=== PATIENT | female | born 1955 | race Caucasian/White ===

== ENCOUNTER → 2020-05-06 08:55 | Outpatient (CLI) | payer MEDICARE, MEDICAID, SELFPAY ==
[2020-05-07 20:12] LABS: COVID19 Sendout Not Detected (Not Detect)
== END ==
PROVIDERS: PCP Physician Assistant; Visit Provider Physician Assistant
DX: Z11.59 Encounter for screening for other viral diseases (principal)
CPT/HCPCS: 87635

== ENCOUNTER → 2020-05-07 10:44 | Outpatient (CLI) | payer MEDICARE, MEDICAID, SELFPAY ==
[2020-05-07 11:41] LABS: RBC Urine None Seen (0-5/HPF); WBC Urine None Seen (0-5/HPF)
[2020-05-07 12:18] LABS: Appearance Urine UA CLEAR; Bilirubin Urine UA NEGATIVE (NEGATIVE); Color Urine UA YELLOW; Glucose Urine UA NEGATIVE (Negative); Ketones Urine UA NEGATIVE (NEGATIVE); Leukocyte Esterase Urine UA NEGATIVE (NEGATIVE); Nitrite Urine UA NEGATIVE (Negative); Occult Blood Urine UA NEGATIVE (Negative); Protein Urine UA NEGATIVE (Negative); Specific Gravity Urine UA 1.025 (1.000-1.035); Urobilinogen Urine UA 0.2 E.U./dL (0.2)
[2020-05-07 12:21] LABS: Add Manual Diff / Slide Review NO; Basophils Absolute Auto 0 /uL (0-100); Basophils Percent Auto 1.1 % (0-2); Eosinophils Absolute Auto 0 /uL (0-450); Eosinophils Percent Auto 0.9 % (2-4); Hematocrit 39.1 % (36-46); Hemoglobin 13.2 g/dL (12.0-16.0); Lymphocytes Absolute Auto 1600 /uL (1100-4500); Mean Corpuscular HGB Conc 33.7 % (30-36); Mean Corpuscular Hemoglobin 29.5 PG (26-34); Mean Corpuscular Volume 87.6 fL (80-100); Monocytes Absolute Auto 500 /uL (0-900); Monocytes Percent Auto 11.3 % (3-14); Neutrophils Absolute Auto 2300 /uL (1500-7000); Neutrophils Percent Auto 51.7 % (50-75); Platelet Count 221 X10^3/uL (150-400); Red Blood Cell Count 4.47 X10^6/uL (4.0-5.2); Red Cell Distribution Width 14.3 % (11.6-14.8); White Blood Cell Count 4.4 X10^3/uL (4.5-11.0)
[2020-05-07 12:41] LABS: BUN Creatinine Ratio 22.9 (6-22); Blood Urea Nitrogen 16 mg/dL (7-17); Calcium 9.6 mg/dL (8.4-10.2); Carbon Dioxide 28 mmol/L (22-32); Chloride 106 mmol/L (98-107); Estimated Glomerular Filt Rate > 60.0 mL/min (>60); Glucose 95 mg/dL (80-110); HEMOLYSIS 19 (0-50); Potassium 4.3 mmol/L (3.4-5.1); Sodium 138 mmol/L (137-145)
[2020-05-07 12:46] LABS: Bacteria Urine Occasional (0-1); Culture Indicated Urine Cult Not Indicated; Squamous Epithelial Cell Urine 1-5 /HPF (0-5/HPF)
== END ==
PROVIDERS: PCP Physician Assistant; Referring Provider Orthopaedic Surgery Orthopaedic Surgery of the Spine; Visit Provider Orthopaedic Surgery Orthopaedic Surgery of the Spine
DX: Z01.818 Encounter for other preprocedural examination (principal); Z01.812 Encounter for preprocedural laboratory examination; N39.0 Urinary tract infection, site not specified
CPT/HCPCS: 36415; 80048; 81001; 85025; 93005

== ENCOUNTER 2020-05-10 15:38 | Observation (INO) | payer MEDICARE, MEDICAID, SELFPAY ==
[2020-05-08 13:38] VITALS: BMI 23.6
[2020-05-09] VITALS (15 sets, daily range): BP systolic 94–167; BP diastolic 42–86; PULSE 64–101; RESP 12–20; TEMP 35.8–36.8; O2SAT 89–100; BMI 23.3
--- NOTE | 2020-05-09 | DI.RAD.S_ITS ---
PROCEDURE: XR LUMBAR SPINE 2-3V INDICATIONS: L4-5, L5-S1 TLIF TECHNIQUE: 2 intraoperative fluoroscopic views of the lumbar spine were acquired. COMPARISON: None. FINDINGS: Intraoperative fluoroscopic images of lower lumbar spine shows transpedicular fusion of L4 through S1 vertebral bodies with intervertebral disc spacer placement at L4-5 and L5-S1 levels. IMPRESSION: Fluoro guidance was provided intraoperatively for fusion of lower lumbar spine. Dictated by: Andreas Castañeda M.D. on 05/09/2020 at 12:37 Approved by: Andreas Castañeda M.D. on 05/09/2020 at 12:38
[2020-05-09] MEDS: LACTATED RINGERS 1,000 ML 42 ML IV ×2 (07:15→10:30)
[2020-05-09] MEDS: CEFAZOLIN 2 GM/100 ML FROZ.PIGGY IV (07:54)
--- NOTE | 2020-05-09 07:54 | PM.PREOP ---
Pre-operative Note COVID-19 COVID-19 status: Negative Result date/Date tested (Pos, Neg/Pending): 05/07/20 Interval Note History & Physical reviewed/Exam performed by Physician: Yes Changes to H&P: No
--- NOTE | 2020-05-09 08:20 | SUR.OPER ---
Prone on spine table, head in foam head support, padded chest and pelvic supports, gel pad at knees, lower legs supported by pillows; nipples, genitalia and toes free of pressure, arms secured on foam padded arm boards at <90 degrees abduction. Tape over blanket at thigh secured to table.
[2020-05-09] MEDS: BUPIVACAINE LIPOSOME 266 MG/20 ML VIAL INJ (08:28)
[2020-05-09] MEDS: BUPIVACAINE 0.25% W/ EPI (PF) 10 ML VIAL 20 ML INJ (08:30)
--- NOTE | 2020-05-09 12:24 | P.OP_ITS ---
Operative Date/Time/Diagnoses Date of procedure: 05/09/20 Time of procedure: 08:07 Pre-op diagnosis: 1. L4-5, L5-S1 spondylolisthesis 2. L4-5, L5-S1 spinal stenosis Post-op diagnosis: same Procedure & Clinicians Procedure: 1. L4-5, L5-S1 Postero-lateral and posterior interbody fusion 2. L4-5, L5-S1 interbody cage placement. 3. L4-5, L5-S1 decompressive laminectomy with bilateral facetecomies 4. L4-5, L5-S1 Posterior segmental instrumentation 5. Henderson of bone marrow from iliac crest 6. Utilization of microsurgical technique and operating microscope Same procedure as scheduled: Yes Indications: Patient has been having chronic back pain and worsening lumbar radiculopathy. Patient failed multiple conservative management with worsening pain weakness and numbness in her lower extremity. Patient has been having difficulty performing activity of daily living. After discussing risks benefits of treatment options, patient elected proceed with surgery. Surgeon: Ion Awad Affiliate Marketing Manager: Lauren Mittal Click Yes if Unassisted: No Anesthesia Type: General Operative Notes Closure Type: primary Specimen(s): none sent Prosthetic devices, grafts, tissues, transplants, or devices: Globus revolve screws, Rise cages Applied: catheter Estimated Blood Loss (mL): 100 Blood products transfused: none Procedure in detail: Patient was seen in the preoperative area. Risks and benefits of the surgery was discussed with the patient. Informed consent was obtained from the patient and placed in the chart. Surgical site was marked. Patient was taken to the operative room. General anesthesia was administered. Prophylactic antibiotic was given to the patient less than 30 min before the incision was made. Patient was placed into a prone position on the Holden table. Patient's back was then prepped and draped in the sterile fashion. Time- out was performed at this time. Using AP and lateral C-arm imaging the interval between L4-S1 was identified and marked on patient's back. A 2 inch incision 2 in from midline was made on the right side first. The fascia was incised in line with skin incision. Globus MARS retractors was placed inside the incision and docked onto the L4 and L5 lamina. Using microsurgical technique and operating microscope, a L4 and L5 laminectomy and L4-5 L5-S1 facetectomy was performed using a Kerrison rongeur. During the process of decompression more than 75% of bilateral L4-5 L5-S1 facets were removed in order to decompress the spinal canal and the lateral recess. Bilateral L4-L5 and S1 nerve roots were decompressed during the process of decompression. The L4-5 L5-S1 level was grossly unstable after the decompression was completed and requiring the fusion procedure. The disc space at L4-5, L5-S1 was identified. And a total diskectomy was performed at L4-5, L5- S1 level. The endplates were decorticated using a rasp and shaver. The total diskectomy and decortication was performed at L4-5, L5-S1 level in order to to accomplish a L4-5, L5-S1 fusion. The local bone from the laminectomy and facetectomy was saved for local bone grafting. After the total diskectomy and decortication was completed, Trifecta bone graft material was combined with local bone that was harvested earlier. At this time, a separate skin is incision was made over the iliac crest. A Jamshidi needle was inserted into the iliac crest through a separate skin incision. 5 cc of bone marrow aspiration was obtained through the separate skin incision using a Jamshidi needle from the iliac crest. The bone marrow aspiration was combined with local bone and the Trifecta bone grafting material. The bone grafting material was placed into the L4-5, L5-S1 interbody space along with two cages, one expandable cage at each level. The cages were expanded to their maximum height using the torque limiting screwdriver. At this time a mirror image incision was made on the left side. The fascia was incised in line with the skin incision. Globus MARS retractor was inserted and docked onto the L4-5, L5-S1 posterolateral gutter. Using the power drill, posterior-lateral decortication was performed at L4-5, L5-S1 level until bleeding cortical bone was identified. The remaining bone grafting material was placed into the L4-5 L5-S1 posterior lateral gutter he order to accomplish posterolateral fusion at the L4-5 L5-S1 levels. Using the double C-arm technique, pedicle screws were placed into the L4, L5, S1 pedicles bilaterally. This was done by placing the Jamshidi needle into the pedicles, then placing the guidewires over the Jamshidi needle, and finally placing the cannulated screws over the guidewires bilaterally. After the pedicle screws were placed, 2 titanium rods was locked into the heads of the pedicle screws using locking caps and torque limiting screwdriver. Total 6 pedicles screws were placed. After all the hardware was placed, and confirmed with AP and lateral C-arm imaging, the wound was then irrigated with sterile normal saline and packed with Ray-Adam gauze for 3 min to accomplish hemostasis. After the gauze was removed the deep fascia was closed with #1 Vicryl suture. The subcutaneous layer was closed with 2-0 Vicryl. The skin was closed with skin jany. Patient tolerated the procedure well. There were no complications. Complications: none Post-operative Condition: stable Disposition: PACU Plan for aftercare: Admit to inpatient hospital
[2020-05-09] MEDS: HYDROMORPHONE 2 MG INJ IV (12:45)
[2020-05-09] MEDS: hydrOXYzine 50 MG/ML INJ 25 MG IM (13:07)
[2020-05-09] MEDS: OXYCODONE/ACETAMINOPHEN 5/325 TABLET 1 TAB PO (13:12)
--- NOTE | 2020-05-09 13:24 | SUR.PHASEI ---
1232 - Pt received to PACU after general anesthesia. Oral airway in place. No further airway support required. Report received from JUAN PABLO Carver and Dr Sierra. 1237 - Oral airway removed without difficulty. Pt restless, squirming, not following commands. Will medicate for pain - see AUG. 1255 - Dr Sierra at bedside - medicated by Dr Sierra - see anesthesia record. 1325 - Pt less restless - does try to sit up at times until reminded not to. Following commands. Pt sleeepy. Will continue to monitor until more oriented to situation.
[2020-05-09] MEDS: SODIUM CHLORIDE 0.9% 1,000 ML 100 ML IV (16:08)
[2020-05-09] MEDS: CEFAZOLIN 1 GM/50 ML FROZ.PIGGY IV ×2 (16:10→23:59)
[2020-05-09] MEDS: OXYCODONE IR 10 MG TABLET PO (18:00)
--- NOTE | 2020-05-09 18:53 | PC.NURSE ---
Addendum entered by Farideh King R.N. 05/09/20 21:34: Patient with nausea and emesis, zofran given and effective. Original Note: Patient resting in bed this shift. Sat up to eat for dinner. Pain controlled well with oxycodone. Pad under patient changed d/t lower back dressing saturated. Reinforced back dressing w/2 4x4s and paper tape. Patient tolerated well. Patient has c/o eyes burning when opened. As the shift has gone on the burning of her eyes has improved some. At the beginning of the shift patient was on 2L o2 sats 99%, placed on RA sats 96%. Patient has been A&O, calm and cooperative.
[2020-05-09] MEDS: DOCUSATE 100 MG CAPSULE PO (20:38)
[2020-05-09] MEDS: SENNOSIDES 8.6 MG TABLET 17.2 MG PO (20:38)
[2020-05-09] MEDS: ONDANSETRON 4 MG/2 ML INJ IV (20:38)
[2020-05-10] VITALS (7 sets, daily range): BP systolic 102–134; BP diastolic 55–70; PULSE 90–101; RESP 16–19; TEMP 36.2–37.6; O2SAT 95–97
[2020-05-10] MEDS: ACETAMINOPHEN 325 MG TABLET 650 MG PO ×3 (02:37→21:50)
[2020-05-10] MEDS: SODIUM CHLORIDE 0.9% 1,000 ML 100 ML IV (03:45)
[2020-05-10 05:31] LABS: Hematocrit 33.4 % (36-46); Hemoglobin 11.2 g/dL (12.0-16.0)
[2020-05-10] MEDS: DOCUSATE 100 MG CAPSULE PO ×2 (08:43→21:49)
[2020-05-10] MEDS: INFLUENZA HD VACCINE 0.7 ML SYRINGE IM (08:43)
--- NOTE | 2020-05-10 10:03 | PC.NURSE ---
Dressing to lower back has been changed to a coversite with gauze pads in place to provide additional pressure to weeping incisions. Previous dressing saturated 90%. Pt has been up to bedside chair for breakfast. She moved very well with one person assist and FWW. She did not tolerate sitting in the chair long. She requested to be put back to bed. Pt rated her pain at 4/10. She did not want to have 10mg of oxycodone as it had made her nauseous last night. She requested just tylenol and ibuprophen. We had a discussion about talking with ESTEFANY Arias and asking if we could change her narcotic pain med to one that is a little less strong. ESTEFANY Arias has been called and message left.
--- NOTE | 2020-05-10 10:10 | PM.PN.1 ---
Subjective Subjective Date Patient Seen: 05/10/20 Time Patient Seen: 10:10 Interval history: Patient is POD#1 L4-5, L5-S1 TLIF with Dr. wAad. Some issues with pain control, Oxycodone was causing significant nausea/vomiting and so she was avoiding this and taking only Tylenol. Started on [place] this afternoon which is providing improved relief. Patient denies muscle spasms. Voiding appropriately and tolerating a diet at this point. Exam Vital Signs (past 8 hours): - 05/10/20 05:36 05/10/20 09:34 Temperature 98.3 F 97.8 F Pulse Rate 101 H 90 Respiratory Rate 16 16 Blood Pressure 117/68 102/55 L Pulse Oximetry 96 97 Oxygen Delivery Method Nasal Cannula Oxygen Flow Rate 0 Narrative Exam Narrative: 65 year old female resting in bed. Alert and oriented in no acute distress. Dressing in place over lumbar spine is CDI. 5/5 BLE. Calves are soft, nontender. Objective Labs Result Diagrams: 05/10/20 05:00 Labs: Laboratory Results - last 24 hr 05/10/20 05:00 Hgb 11.2 L Hct 33.4 L Assessment & Plan Assessment & Plan narrative: Patient doing well postop L4-5, L5-S1 TLIF. Continue to work with PT. Discontinued Oxycodone due to vomiting and started [place] with improved relief. Likely discharge to home tomorrow. Quality VTE Deep Vein Thrombosis/Pulmonary Embolism Present on Admission: No
--- NOTE | 2020-05-10 11:20 | PT.IIE ---
Current Diagnoses Spondylolisthesis, lumbosacral region (05/09/20) Spinal stenosis, lumbar region without neurogenic claudication (05/09/20) Surgery Performed Operation Date: 05/09/20 07:45 Actual Procedures p L4-5, L5-S1 TLIF - Ion Awad MD Surgical History (Last Updated 05/08/20 @ 14:07 by Khadijah Castro RN) History of arthroplasty of right hip (Acute) History of colonoscopy (Acute) History of partial hysterectomy (Acute) Hx of appendectomy (Acute) Hx of LASIK (Acute) Hx of tubal ligation (Acute) Medical History (Last Updated 05/08/20 @ 14:07 by Khadijah Castro RN) Arthritis (Acute) Back pain (Acute) Glaucoma (Acute ~2013) Sciatica (Acute) Physical Therapy Inpatient Evaluation/Re-Eval M1 PT/OT-IP Prior Functional Status Start: 05/10/20 08:40 Freq: NEEDED Status: Active Protocol: Document 05/10/20 11:15 AW (Rec: 05/10/20 12:16 AW [id number]) Medical Review Prior Functional Status Medical History Reviewed Yes Communication WNL Mobility and Gait Pt states she is independent with all mobilities except for use of a cane for uneven surfaces [place] as at the beach. Activities of Daily Living and IADL's Pt is right-handed and notes some wasting of the thenar eminence which has made some fine motor tasks more difficult. In spite of this, she has remained independent with all ADL's. Her sister assist with cooking, cleaning, and some shopping. Social History Household Members family Living Arrangements House Number of Floors (Floors) Two Floors Number of Stairs To Enter/Railing? 2 AMIRA with left rail ascending . Once inside, pt must climb 6 + 7 steps with left railing along the entire stair case. Her bedroom is located on the upper level. Home Environment Standard Height Toilet,Tub/ Shower Home Equipment Straight Cane,Grab Bars In Shower Additional Social History Comment Pt lives with her sister and [id number]. Between the two of them, they are taking days off to assist the pt for ~6-7 days after surgery. M2 PT-IP Current Condition Start: 05/10/20 08:40 Freq: NEEDED Status: Active Protocol: Document 05/10/20 11:15 AW (Rec: 05/10/20 12:16 AW [id number]) Physical Therapy Current Condition Current Condition Evaluation Date 05/10/20 Treatment Diagnosis s/p L4-S1 TLIF Onset Date 05/09/20 Precautions Lumbar Precautions Log Roll,No Twisting,Limit Bending,Lifting Restriction of 10 lbs,Gait Belt above Incisional Area M3 PT-IP Subjective Start: 05/10/20 08:40 Freq: NEEDED Status: Active Protocol: Document 05/10/20 11:15 AW (Rec: 05/10/20 12:16 AW [id number]) Subjective Physical Therapy Visit Type Type Initial Evaluation Visit Start Time 10:51 Visit Stop Time 11:14 Total Visit Minutes 23 Physical Therapy Visit Comments Patient Comments I'll do whatever you ask me to do. Patient Goals Pt plans to discharge home with family assist. Therapy Pain Assessment Pain When Pain Assessed During Mobility Pain Present Pain Present Pain Reported Location back Intensity 4 Scale Used 3/10 at rest; 4/10 during ambulation Pain Management Techniques Timing of Activity with Medications M4 PT-IP Mobility and Gait Start: 05/10/20 08:40 Freq: NEEDED Status: Active Protocol: Document 05/10/20 11:15 AW (Rec: 05/10/20 12:16 AW [id number]) PT-Bed Mobility Assessment Rolling Type of Rolling Log Rolling,Roll to Left Level of Assist Contact Guard Assistance Supine to Sit Supine to Sit Contact Guard Assistance Sit to Supine Sit to Supine Contact Guard Assistance Scooting Scooting to Edge of Bed Standby Assistance PT-Transfer Assessment Sit to and From Stand Sit to and from Stand Contact Guard Assistance,2 Person Assistance Equipment Transfer Assistive Device Gait Belt,Front Wheeled Walker Orthotic/Prosthetic Devices or Brace: No Transfers Transfer Destination Bed Transfer Technique pt ambulated with FWW Transfer Ability Level of Assist Contact Guard Assistance Comments Mobility Comments Pt was lying on her left side as PT entered the room. PT educated the pt on back precautions and pt demonstrated log roll and sidelying to sit transfer with verbal cues and CGA. At EOB, BP was 107/59 HR 77. She sat with and without UE support during strength assessment and then stood from the bed CGA. With FWW, she ambulated in the halls with slow speed but good step length ~100 feet before returning to the room and requesting to rest in the bed. She completed sit to supine CGA with good attention to precautions. She was situated on the bed with call light and all needs within reach. Gait Assessment Gait Gait Assistance Required: Contact Guard Assist Distance (Feet) 100 Able to Maintain Weight Bearing Status Yes During Gait Assistive Devices Assistive Device Gait Belt,Front Wheeled Walker Orthotic/Prosthetic Devices or Brace: No Gait Deviations General Gait Pattern Antalgic,Decreased Feet Clearance,Flexed Trunk Factors Limiting Gait Function Factors Limiting Gait Function Decreased Activity Tolerance, Decreased Strength,Limited Range of Motion,Pain,Poor Balance Comments Gait Comments Pt responded well to cues for optimal positioning relative to the FWW. Weightbearing on the walker was minimal. Pt may be safe with SPC. Stair Climbing Assessment Comments Stair Climbing Comments Not assessed. Pt will need to clear stairs prior to discharge. PT-Balance Assessment Sitting Balance and Reactions Static Sitting Balance Ability Good Dynamic Sitting Balance Ability Good Standing Balance and Reactions Static Standing Balance Ability Good Dynamic Standing Balance Ability Good Device Used FWW M5 PT-IP Objective Assessments Start: 05/10/20 08:40 Freq: NEEDED Status: Active Protocol: Document 05/10/20 11:15 AW (Rec: 05/10/20 12:16 AW [id number]) Orientation Orientation/Cognition Level of Alertness Alert Orientation Name,Day of Week,Place, Situation Language Function Ability No Deficits Noted Safety Awareness Understands Safety Issues Memory Description No Deficits Noted Gross Range of Motion Lower Extremity ROM Assessment Within Functional Limits Strength Lower Extremity Strength Assessment Bilaterally Impaired Hip 4/5 Knee 4+/5 Ankle 4/5 Coordination Assessment Gross Coordination Gross Coordination WNL Sensation Assessment Sensation Gross Sensation WNL M6 PT-IP Treatment Start: 05/10/20 08:40 Freq: NEEDED Status: Active Protocol: Document 05/10/20 11:15 AW (Rec: 05/10/20 12:16 AW [id number]) Physical Therapy Treatment Education Education Provided Precautions,Weight Bearing Status,Post-Op Packet,Safety Other Treatments Other Treatment Performed Provided education on role of PT, plan of care, post op precautions, and safe use of FWW. M7 PT-IP Assessment and Plan Start: 05/10/20 08:40 Freq: NEEDED Status: Active Protocol: Document 05/10/20 11:15 AW (Rec: 05/10/20 12:16 AW [id number]) PT Summary Assessment and Plan Potential Rehabilitation Potential Good Status of Condition at Evaluation Stable Summary Impairments Pain,ROM,Strength,Balance,Bed Mobility,Transfers,Gait, Activity Tolerance Assessment Summary Teresita is a 65 yo woman seen for PT evaluation on POD1 following L4-S1 TLIF. She is independent in all regards at baseline though admits to some difficulty with ADL's due to decreased muscle mass in her right thenar eminence. On evaluation, pt required CGA for bed mobility, transfers, and gait with FWW. Pt is not yet safe for discharge but PT anticipates home with assist will be a safe plan once pt is able to navigate stairs. Goals Bed Mobility Goal Independent Transfer Goal Independent,Cane Gait Goal Independent,Standby Assistance ,Cane Gait Distance 200 Other Goals - up/down 13 steps with left rail ascending SBA - gait and transfer goals may be accomplished with FWW if pt unsafe with SPC Days to Meet Goals 5 Frequency of Treatment Frequency Of Treatment Twice a Day Treatment Plan Physical Therapy Treatment Plan Bed Mobility Training,Transfer Training,Gait Training, Therapeutic Exercise,Balance Retraining,Post Op Education, Discharge Planning,Hot or Cold Pack,Neuromuscular Re-ed, Coordination Retraining,Manual Therapy Other Recommendations and Next Treatment assess gait and transfers with Focus SPC if pt tolerates; stairs Recommendations To Nursing Amount of Assist Needed 1 Person Assist Discharge Recommendations PT Discharge Recommendations Home with Assistance Equipment Needed for Home Before FWW if unsafe with FWW Discharge Transportation Needs at Discharge Private Vehicle
--- NOTE | 2020-05-10 11:47 | CM.IDA ---
Initial DCP Assessment Note Pt is a 65 yo female, resident of [place], now POD#1 from spinal surgery w/ Dr Awad PCP: Indira Romero Payer: MAXINE/JENNA Met w/patient this morning to introduce role. Patient in increasing pain and so kept visit brief and alerted JUAN PABLO Reed. Patient lives w/her sister and brother in law, patient's niece, Chloe, works as a MANAGER OF COMMUNITY RELATIONS at . Patient expects no needs from this MEDIA SERVICES COORDINATOR upon DC, family available to assist in her recovery. Will continue to follow closely and address any DC needs or concerns if they arise. YANI Tee
[2020-05-10] MEDS: HYDROCODONE/ACET 5/325 TABLET 1 TAB PO (13:13)
--- NOTE | 2020-05-10 14:56 | PT.IPTN ---
Current Diagnoses Spondylolisthesis, lumbosacral region (05/09/20) Spinal stenosis, lumbar region without neurogenic claudication (05/09/20) Surgery Performed Operation Date: 05/09/20 07:45 Actual Procedures p L4-5, L5-S1 TLIF - Ion Awad MD Physical Therapy Treatment Note M2 PT-IP Current Condition Start: 05/10/20 08:40 Freq: NEEDED Status: Active Protocol: Document 05/10/20 11:15 AW (Rec: 05/10/20 12:16 AW [id number]) Physical Therapy Current Condition Current Condition Evaluation Date 05/10/20 Treatment Diagnosis s/p L4-S1 TLIF Onset Date 05/09/20 Precautions Lumbar Precautions Log Roll,No Twisting,Limit Bending,Lifting Restriction of 10 lbs,Gait Belt above Incisional Area M3 PT-IP Subjective Start: 05/10/20 08:40 Freq: NEEDED Status: Active Protocol: Document 05/10/20 14:42 AW (Rec: 05/10/20 14:55 AW [id number]) Subjective Physical Therapy Visit Type Type Treatment Note Visit Start Time 13:57 Visit Stop Time 14:22 Total Visit Minutes 25 Physical Therapy Visit Comments Patient Comments Pt is willing to participate with PT Therapy Pain Assessment Pain When Pain Assessed During Mobility Pain Present Pain Present Pain Reported Location back Intensity 4 Scale Used 3/10 at rest; 4/10 during ambulation Pain Management Techniques Timing of Activity with Medications M4 PT-IP Mobility and Gait Start: 05/10/20 08:40 Freq: NEEDED Status: Active Protocol: Document 05/10/20 14:42 AW (Rec: 05/10/20 14:55 AW [id number]) PT-Bed Mobility Assessment Rolling Type of Rolling Log Rolling,Roll to Right Supine to Sit Supine to Sit Standby Assistance Sit to Supine Sit to Supine Standby Assistance Scooting Scooting to Edge of Bed Standby Assistance PT-Transfer Assessment Sit to and From Stand Sit to and from Stand Standby Assistance Equipment Transfer Assistive Device Gait Belt,Front Wheeled Walker Orthotic/Prosthetic Devices or Brace: No Transfers Transfer Destination Bed Transfer Technique pt ambulated with FWW Transfer Ability Level of Assist Standby Assistance Comments Mobility Comments Pt was lying on her right side as PT and SPT entered the room. Pt was able to recall 3/ 3 back precautions. She completed sidelying to sit transition SBA and sat EOB. BP was 100/38 HR 112 but pt was asymptomatic. Pt stood from EOB with no lightheadedness CGA and proceeded to ambulate with w/c follow and SPC. Pt ambulated ~ 40 feet with SPC requiring CGA due to increased unsteadiness. Pt acknowledged unsteady gait and agreed to switch to FWW. With FWW, pt ambulated another 100 feet before requesting to sit on the w/c. She was wheeled to the stairs where she stood with FWW, walked to the stairs , and completed stair training CGA. After stair training, pt ambulated with FWW 200 SBA but needed CGA once for LOB due to poor obstacle clearance . Pt returned to the room and sat on the right side of the bed. She transferred back to sidelying SBA. BP after activity was 99/54 HR 115. She was positioned on the bed with call light and all needs within reach. Gait Assessment Gait Gait Assistance Required: Standby Assistance,Contact Guard Assist Distance (Feet) 200 Able to Maintain Weight Bearing Status Yes During Gait Assistive Devices Assistive Device Gait Belt,Straight Cane,Front Wheeled Walker Orthotic/Prosthetic Devices or Brace: No Gait Deviations General Gait Pattern Antalgic,Decreased Feet Clearance,Flexed Trunk Factors Limiting Gait Function Factors Limiting Gait Function Decreased Activity Tolerance, Decreased Strength,Limited Range of Motion,Pain,Poor Balance Comments Gait Comments Pt agreed gait with SPC was unsafe. She improved her steadiness with FWW. Stair Climbing Assessment Evaluation Level of Assist On Stairs Contact Guard Assistance Devices Stair Climbing Assistive Devices Left Railing Technique/Endurance Stair Climbing Direction Ascend and Descend Stair Climbing Technique Step to Step Number of Steps Climbed 3 Stair Climbing Set # Repetitions (reps) 4 Comments Stair Climbing Comments Pt completed stair training using left railing CGA. She began with step over step patterning first set and reverted to step-to pattern with increased fatigue. PT-Balance Assessment Sitting Balance and Reactions Static Sitting Balance Ability Good Dynamic Sitting Balance Ability Good Standing Balance and Reactions Static Standing Balance Ability Good Dynamic Standing Balance Ability Good Device Used FWW; downgrade to fair with SPC M5 PT-IP Objective Assessments Start: 05/10/20 08:40 Freq: NEEDED Status: Active Protocol: Document 05/10/20 11:15 AW (Rec: 05/10/20 12:16 AW [id number]) Orientation Orientation/Cognition Level of Alertness Alert Orientation Name,Day of Week,Place, Situation Language Function Ability No Deficits Noted Safety Awareness Understands Safety Issues Memory Description No Deficits Noted Gross Range of Motion Lower Extremity ROM Assessment Within Functional Limits Strength Lower Extremity Strength Assessment Bilaterally Impaired Hip 4/5 Knee 4+/5 Ankle 4/5 Coordination Assessment Gross Coordination Gross Coordination WNL Sensation Assessment Sensation Gross Sensation WNL M6 PT-IP Treatment Start: 05/10/20 08:40 Freq: NEEDED Status: Active Protocol: Document 05/10/20 14:42 AW (Rec: 05/10/20 14:55 AW [id number]) Physical Therapy Treatment Education Education Provided Precautions,Safety Other Treatments Other Treatment Performed Pt independently recalled 3/3 precautions and moved with good attention to same. M7 PT-IP Assessment and Plan Start: 05/10/20 08:40 Freq: NEEDED Status: Active Protocol: Document 05/10/20 14:42 AW (Rec: 05/10/20 14:55 AW [id number]) PT Summary Assessment and Plan Summary Impairments Pain,ROM,Strength,Balance,Bed Mobility,Transfers,Gait, Activity Tolerance Progress Towards Goals Progressing Toward Goals Assessment Summary Teresita required decreased level of assist this PM. She was asymptomatically hypotensive throughout. Unknown if this is consistent with her baseline BP. PT communicated findings to RN. She completed stair training with CGA. This PT and pt agree that she is steadier and safer with FWW. Pt states she will ask her sister to procure a walker. Will follow up in the AM. Goals Bed Mobility Goal Independent Transfer Goal Independent,Cane Gait Goal Independent,Standby Assistance ,Cane Gait Distance 200 Other Goals - up/down 13 steps with left rail ascending SBA - gait and transfer goals may be accomplished with FWW if pt unsafe with SPC Days to Meet Goals 5 Frequency of Treatment Frequency Of Treatment Twice a Day Treatment Plan Physical Therapy Treatment Plan Bed Mobility Training,Transfer Training,Gait Training, Therapeutic Exercise,Balance Retraining,Post Op Education, Discharge Planning,Hot or Cold Pack,Neuromuscular Re-ed, Coordination Retraining,Manual Therapy Recommendations To Nursing Amount of Assist Needed 1 Person Assist Discharge Recommendations PT Discharge Recommendations Home with Assistance Equipment Needed for Home Before FWW if unsafe with SPC Discharge Transportation Needs at Discharge Private Vehicle
--- NOTE | 2020-05-10 14:59 | OT.IP.EVAL ---
Current Diagnoses Spondylolisthesis, lumbosacral region (05/09/20) Spinal stenosis, lumbar region without neurogenic claudication (05/09/20) Surgery Performed Operation Date: 05/09/20 07:45 Actual Procedures p L4-5, L5-S1 TLIF - Ion Awad MD Past Medical History (Last Updated 05/08/20 @ 14:07 by Khadijah Castro RN) Arthritis (Acute) Back pain (Acute) Glaucoma (Acute ~2014) Sciatica (Acute) Surgical History (Last Updated 05/08/20 @ 14:07 by Khadijah Castro RN) History of arthroplasty of right hip (Acute) History of colonoscopy (Acute) History of partial hysterectomy (Acute) Hx of appendectomy (Acute) Hx of LASIK (Acute) Hx of tubal ligation (Acute) Occupational Therapy Inpatient Evaluation/Re-Eval M1 PT/OT-IP Prior Functional Status Start: 05/10/20 17:44 Freq: NEEDED Status: Active Protocol: Document 05/10/20 17:51 [facility] (Rec: 05/10/20 18:20 [facility] [id number]) Medical Review Prior Functional Status Medical History Reviewed Yes Communication WNL Mobility and Gait Pt states she is independent with all mobilities except for use of a cane for uneven surfaces [place] as at the beach. Activities of Daily Living and IADL's Pt is right-handed and notes some wasting of the thenar eminence which has made some fine motor tasks more difficult. In spite of this, she has remained independent with all ADL's. Her sister assist with cooking, cleaning, and some shopping. Social History Household Members family Living Arrangements House Number of Floors (Floors) Two Floors Number of Stairs To Enter/Railing? 2 AMIRA with left rail ascending . Once inside, pt must climb 6 + 7 steps with left railing along the entire stair case. Her bedroom is located on the upper level. Home Environment Standard Height Toilet,Tub/ Shower Home Equipment Straight Cane,Grab Bars In Shower Additional Social History Comment Pt lives with her sister and [id number]. Between the two of them, they are taking days off to assist the pt for ~6-7 days after surgery. M2 OT-IP Current Condition Start: 05/10/20 17:44 Freq: Status: Active Protocol: Document 05/10/20 17:51 [facility] (Rec: 05/10/20 18:20 [facility] [id number]) Occupational Therapy Current Condition Current Condition Evaluation Date 05/10/20 Treatment Diagnosis s/p L 4-5 , L5-S1 TLIF Diagnosis Onset Date 05/09/20 Post Operative Precautions Lumbar Precautions Log Roll,No Twisting,Limit Bending,Lifting Restriction of 10 lbs,Gait Belt above Incisional Area M3 OT- IP Subjective and Pain Start: 05/10/20 17:44 Freq: Status: Active Protocol: Document 05/10/20 17:51 [facility] (Rec: 05/10/20 18:20 [facility] [id number]) OT- Subjective Occupational Therapy Visit Type Type Initial Evaluation Visit Start Time 14:31 Visit Stop Time 14:59 Total Visit Minutes 28 Occupational Therapy Visit Comments Patient Comments Pt agreed to get up for OT eval. Patient/Caregiver Goals To go home. OT Pain Assessment Pain When Pain Assessed During Mobility Pain Present Pain Present Pain Reported M4 OT- IP ADL's Start: 05/10/20 17:44 Freq: Status: Active Protocol: Document 05/10/20 17:51 [facility] (Rec: 05/10/20 18:20 [facility] [id number]) OT [id number] Comments OT Self-Feeding Comments NOt at meal time. OT ADL-Grooming Comments OT Grooming Comments Able to wash her hands at the sink. OT ADL-Oral Care Comments Oral Care Comments Educated best to spit into a cup or hinge at her hips to spit in to sink to best follow her back precautions. OT ADL-Dressing General Eval Lower Body Dressing Ability Maximum Assistance Areas Needing Assistance Socks Comments OT Dressing Comments Initiated education of LB dressing and issed to her. To further practice after showering tomorrow for OT session. OT ADL-Toileting General Evaluation Toileting Ability Standby Assistance Comments OT Toileting Comments Pt able to follow back precautions to be able to wipe appropriately. OT ADL-Bathing Comments OT Bathing Comments To do tomorrow. Pt may benefit from either shower chair or tub bench to further assess which one will be more appropriate. M5 OT- IP IADL's Start: 05/10/20 17:44 Freq: Status: Active Protocol: Document 05/10/20 17:51 [facility] (Rec: 05/10/20 18:20 [facility] [id number]) OT-Instrumental Activities of Daily Living Home Safety Awareness Awareness of Need for Assistance at Home Good Awareness Ability to Problem Solve Emergency Able to Problem Solve Situations Medication Management Medication Management No Deficits Identified Money Management Money Management No Deficits Identified Meal Preparation Meal Preparation Caregiver Provides Assist Curtain Stretcher Curtain Stretcher Caregiver Provides Assist M6 OT- IP Functional Cognition Start: 05/10/20 17:44 Freq: Status: Active Protocol: Document 05/10/20 17:51 [facility] (Rec: 05/10/20 18:20 [facility] [id number]) Cognitive Factors Limiting Selfcare Function Cognitive Ability Level of Alertness Alert Patient Orientation Name,Age,Birthday,Month,Date, Year,Day of Week,Place, Situation Attention Span Ability Capable of Focused Attention, Capable of Sustained Attention Ability to Follow Commands Able to Follow Multi-Step Commands Memory Description No Deficits Noted Safety Awareness No Deficits Noted Problem Solving Ability No deficits Noted Cognitive Comments Cognitive Assessment Comments Today pt having no deficits for cognition and intact and good awareness and safety for back precautions. OT- Vision and Hearing OT- Hearing Assessment OT- Hearing Assessment WFL M7 OT- IP Mobility and Balance Start: 05/10/20 17:44 Freq: Status: Active Protocol: Document 05/10/20 17:51 [facility] (Rec: 05/10/20 18:20 [facility] [id number]) OT- Bed Mobility Assessment Rolling Type of Rolling Roll to Right Level of Assistance Standby Assistance Supine to Sit Supine to Sit Assist Standby Assistance Sit to Supine Sit to Supine Assist Standby Assistance OT-Transfer Assessment Sit to and From Stand Sit to and from Stand Standby Assistance Transfers Transfer Ability Standby Assistance Technique Transfer Destination Bed,Toilet Transfer Technique Stand Step Pivot Devices Transfer Assistive Devices Gait Belt,Front Wheeled Walker Comments Mobility Comments SBA for bed mobility and able to walk into and out of the bathroom with SBA with FWW. OT- Balance Assessment Sitting Balance and Reactions Static Sitting Balance Ability Normal Dynamic Sitting Balance Ability Good Standing Balance and Reactions Static Standing Balance Ability Fair M8 OT- IP Objective Assessments Start: 05/10/20 17:44 Freq: Status: Active Protocol: Document 05/10/20 17:51 [facility] (Rec: 05/10/20 18:20 [facility] [id number]) OT Strength Comments Strength Comments Right hand thenar eminence and decreased FMS M9 OT- IP Assessment and Plan Start: 05/10/20 17:44 Freq: Status: Active Protocol: Document 05/10/20 17:51 [facility] (Rec: 05/10/20 18:20 [facility] [id number]) OT Summary Assessment and Plan Potential Rehabilitation Potential Good Analytic Complexity at Evaluation Low Summary OT Impairments Balance,Functional Mobility, Grooming,Dressing,Toileting, Bathing,Toilet Transfers, Shower Transfers,Activity Tolerance Progress Towards Goals Progressing Toward Goals Assessment Summary Pt low complexity after L4-5 , L5-S1 TLIF with main barrier of pain, steps and needing assist for LB dressing needs. Pt has a supportive family to assist pt as needed. Pt to go home when medically stable. Pt to do shower tomorrow and dressing training for safety and back precautions for Ot session tomorrow. Goals Grooming Goal Independent Dressing Goal Independent Toileting Goal Independent Bathing Goal Independent Toilet Transfer Goal Independent Shower Transfer Goal Independent Patient/Caregiver Education Goal Demonstrate Post-Op Precautions,Caregiver Independent Assisting Patient Days to Meet Goals 3 Frequency of Treatment Frequency Of Treatment Once a Day Treatment Plan OT Treatment Plan ADL Training,Functional Cognition Training,Functional Mobility,Patient/Family Education,Discharge Planning Other Treatment Recommendations and Next Shower and practice with LB Treatment Focus dressing equipment during dressing. Discharge Recommendations OT Discharge Recommendations Home with Assistance Home Equipment Needs FWW, shower chair versus tub bench Transportation Needs at Discharge Private Vehicle
[2020-05-10] MEDS: HYDROCODONE/ACET 10/325 TABLET 1 TAB PO ×2 (17:46→21:50)
[2020-05-10] MEDS: SENNOSIDES 8.6 MG TABLET 17.2 MG PO (21:49)
[2020-05-11 00:25] VITALS: BP 97/53; PULSE 81; RESP 16; TEMP 36.1; O2SAT 94
--- NOTE | 2020-05-11 00:28 | PC.NURSE ---
Patient is alert and oriented. Breath sounds CTA with RA sat of 94%. HRR. BP low at 97/53 but is asymptomatic and patient reports BP is chronically low. Denies nausea. BT present and is passing flatus; has not had BM since 05/06. Denies dysuria, frequency or urgency following catheter removal yesterday. Able to turn herself in bed. Reports weakness when out of bed and is using walker with 1 assist when up. CMS is intact. Refusing SCD's so educated on DVT prevention and ankle waving; verbalizes understanding. Denies pain. Coversite dressing to back is CDI. Fall risk score is moderate; bed alarm is activated.
[2020-05-11 05:57] VITALS: BP 98/56; PULSE 85; RESP 16; TEMP 36.6; O2SAT 98
[2020-05-11] MEDS: HYDROCODONE/ACET 10/325 TABLET 1 TAB PO ×3 (07:09→13:10)
[2020-05-11 07:22] VITALS: BP 99/59; PULSE 90; RESP 16; TEMP 37.4; O2SAT 96
[2020-05-11] MEDS: DOCUSATE 100 MG CAPSULE PO (08:07)
[2020-05-11] MEDS: hydrOXYzine pamoate 25 MG CAPSULE PO (08:07)
--- NOTE | 2020-05-11 09:57 | P.DS_ITS ---
History of Present Illness History of Present Illness Date Patient Seen: 05/11/20 Time Patient Seen: 09:57 Chief complaint: Tranlaminar Interbody Fusion/Laminotomy Narrative: Pain is [id number]. Denies fever or chills. No nausea or vomiting. Patient has assistance at home. Discharge Providers Provider Date of admission: 05/09/20 06:12 Discharge Date: 05/11/20 Primary care physician: Indira Romero PA-C Consults: 05/09/20 15:03 Consult to Occupational Therapy Evaluate & Treat Comment: Physician Instructions: Evaluate and treat Consult to Physical Therapy Evaluate & Treat Comment: Physician Instructions: Evaluate and Treat Discharge provider: Arias Arias PA-C Summary Hospital Course Discharge Diagnosis: 1. L4-5, L5-S1 spondylolisthesis 2. L4-5, L5-S1 spinal stenosis Hospital Course: Procedure: 1. L4-5, L5-S1 Postero-lateral and posterior interbody fusion 2. L4-5, L5-S1 interbody cage placement. 3. L4-5, L5-S1 decompressive laminectomy with bilateral facetecomies 4. L4-5, L5-S1 Posterior segmental instrumentation 5. [place] of bone marrow from iliac crest 6. Utilization of microsurgical technique and operating microscope Same procedure as scheduled: Yes Indications: Patient has been having chronic back pain and worsening lumbar radiculopathy. Patient failed multiple conservative management with worsening pain weakness and numbness in her lower extremity. Patient has been having difficulty performing activity of daily living. After discussing risks benefits of treatment options, patient elected proceed with surgery. Surgeon: Ion Awad [employer] Worker: Lauren Mittal Click Yes if Unassisted: No Anesthesia Type: General Operative Notes Closure Type: primary Specimen(s): none sent Prosthetic devices, grafts, tissues, transplants, or devices: Globus revolve screws, Rise cages Applied: catheter Estimated Blood Loss (mL): 100 Blood products transfused: none Patient had some issues with pain control. Oxycodone was causing significant nausea and vomiting. Patient's pain now is better controlled in nausea/vomiting have resolved. Patient has been stable will be discharged in stable condition to home. Exam Vital Signs (past 8 hours): - 05/11/20 05:57 05/11/20 07:22 Temperature 97.8 F 99.3 F Pulse Rate 85 90 Respiratory Rate 16 16 Blood Pressure 98/56 L 99/59 L Pulse Oximetry 98 96 Oxygen Delivery Method Room Air Oxygen Flow Rate 0 Narrative Exam Narrative: 65-year-old female resting comfortably in bed in no apparent distress. Lumbar dressing is clean, dry and intact. Motor function is intact distal bilateral lower extremities. Sensation grossly intact to light touch bilateral lower extremities. Both legs are warm and dry. Objective Labs Result Diagrams: 05/10/20 05:00 Discharge Assessment & Plan Assessment and Plan Assessment: Patient progressing as expected status post L4-L5, L5-S1 TLIF Plan of Treatment: Discharge home today in stable condition. Discharge Plan Discharge Plan Patient Disposition: Home Discharge orders & Medications Prescriptions: New acetaminophen 325 mg Tablet 650 mg PO Q6HR PRN (Reason: Pain, Mild (1-3)) Qty: 60 RF: 0 hydrocodone-acetaminophen 10-325 mg Tablet 1 tab PO Q3H PRN (Reason: Pain, Moderate (4-6)) Qty: 60 RF: 0 docusate sodium [DOK] 100 mg Capsule 100 mg PO BID Qty: 20 RF: 0 hydroxyzine pamoate 25 mg Capsule 25 mg PO Q4HR PRN (Reason: Nausea And Vomiting) Qty: 30 RF: 0 Follow up/Referrals: Indira Romero PA-C [Primary Care Provider] - Ion Awad MD [Physician] - (Two weeks) Diet/Activity/Treatments Diet: Diet as Tolerated Activity: Limit bending, lifting, twisting Cold/Heat Therapy: Ice as needed Skin/Wound/Dressing Care Report to your healthcare provider any signs of infection, such as:: chills, fever, increased pain, unusual drainage and unusual redness Dressing: Keep clean and dry Visit Report/Discharge Packet Instructions: DI for Prescription Opioid Use, DI for Transforaminal Lumbar Interbody Fusion Stand Alone Forms: Surgery Discharge Discharge Data Primary Care Provider: Indira Romero Quality VTE Deep Vein Thrombosis/Pulmonary Embolism Present on Admission: No
--- NOTE | 2020-05-11 10:50 | OT.IP.TRT ---
Current Diagnoses Spondylolisthesis, lumbosacral region (05/09/20) Spinal stenosis, lumbar region without neurogenic claudication (05/09/20) Surgery Performed Operation Date: 05/09/20 07:45 Actual Procedures p L4-5, L5-S1 TLIF - Ion Awad MD Occupational Therapy Treatment Note M2 OT-IP Current Condition Start: 05/10/20 17:44 Freq: Status: Active Protocol: Document 05/10/20 17:51 CCC (Rec: 05/10/20 18:20 CCC [email or web address]) Occupational Therapy Current Condition Current Condition Evaluation Date 05/10/20 Treatment Diagnosis s/p L 4-5 , L5-S1 TLIF Diagnosis Onset Date 05/09/20 Post Operative Precautions Lumbar Precautions Log Roll,No Twisting,Limit Bending,Lifting Restriction of 10 lbs,Gait Belt above Incisional Area M3 OT- IP Subjective and Pain Start: 05/10/20 17:44 Freq: Status: Active Protocol: Document 05/11/20 13:47 CGR (Rec: 05/11/20 13:55 CGR [email or web address]) OT- Subjective Occupational Therapy Visit Type Type Progress Note Visit Start Time 10:10 Visit Stop Time 10:50 Total Visit Minutes 40 OT Pain Assessment Pain When Pain Assessed During Mobility Pain Present Pain Present Pain Reported Location back Intensity 4 Scale Used Numeric (0 - 10) Management Techniques Modification of Treatment,Re- positioning M4 OT- IP ADL's Start: 05/10/20 17:44 Freq: Status: Active Protocol: Document 05/11/20 13:47 CGR (Rec: 05/11/20 13:55 CGR [email or web address]) OT [id number] Comments OT Self-Feeding Comments Not meal time OT ADL-Grooming General Evaluation Grooming Ability Standby Assistance Areas Needing Assistance Retrieving/Set-up of Grooming Items,Combing/Brushing Hair, Face Washing Comments OT Grooming Comments seated EOB OT ADL-Oral Care Comments Oral Care Comments not performed OT ADL-Dressing General Eval Upper Body Dressing Ability Standby Assistance Lower Body Dressing Ability Standby Assistance Areas Needing Assistance Pull-Over Shirt,Pants/Shorts, Socks Assistive Devices Dressing Assistive Devices Laborer [place],Sock Aid Comments OT Dressing Comments seated in chair OT ADL-Toileting General Evaluation Toileting Ability Standby Assistance Areas Needing Assistance Manage Clothing,Perform Perineal Hygiene Comments OT Toileting Comments seated on toielt OT ADL-Bathing Bathing Type Bathing Type Shower General Evaluation Bathing Ability Standby Assistance Areas Needing Assistance Retrieving/Setting Up Items Devices Bathing Equipment Hand Held Shower Sprayer, Shower Chair with Arms Comments OT Bathing Comments Pt performed shower seated on BSC in shower and completed in less than ~3 minutes. M5 OT- IP IADL's Start: 05/10/20 17:44 Freq: Status: Active Protocol: Document 05/10/20 17:51 [facility] (Rec: 05/10/20 18:20 CCC [email or web address]) OT-Instrumental Activities of Daily Living Home Safety Awareness Awareness of Need for Assistance at Home Good Awareness Ability to Problem Solve Emergency Able to Problem Solve Situations Medication Management Medication Management No Deficits Identified Money Management Money Management No Deficits Identified Meal Preparation Meal Preparation Caregiver Provides Assist Mathematical Engineer Mathematical Engineer Caregiver Provides Assist M6 OT- IP Functional Cognition Start: 05/10/20 17:44 Freq: Status: Active Protocol: Document 05/11/20 13:47 CGR (Rec: 05/11/20 13:55 CGR [email or web address]) Cognitive Factors Limiting Selfcare Function Cognitive Ability Level of Alertness Alert Patient Orientation Name,Age,Birthday,Month,Date, Year,Day of Week,Place, Situation Attention Span Ability Capable of Focused Attention, Capable of Sustained Attention Ability to Follow Commands Able to Follow One Step Commands with Increased Time, Able to Follow One Step Commands with Repetition OT- Vision and Hearing OT- Hearing Assessment OT- Hearing Assessment WFL M7 OT- IP Mobility and Balance Start: 05/10/20 17:44 Freq: Status: Active Protocol: Document 05/11/20 13:47 CGR (Rec: 05/11/20 13:55 CGR [email or web address]) OT- Bed Mobility Assessment Rolling Type of Rolling Log Rolling,Roll to Right Level of Assistance Standby Assistance Supine to Sit Supine to Sit Assist Standby Assistance Sit to Supine Sit to Supine Assist Standby Assistance Scooting Scooting to Edge of Bed Standby Assistance OT-Transfer Assessment Sit to and From Stand Sit to and from Stand Standby Assistance Transfers Transfer Ability Standby Assistance Technique Transfer Destination Bed,Bedside Commode,Shower Stall,Toilet Transfer Technique Stand Step Pivot Devices Transfer Assistive Devices Gait Belt,Front Wheeled Walker OT- Balance Assessment Sitting Balance and Reactions Static Sitting Balance Ability Good Dynamic Sitting Balance Ability Good M8 OT- IP Objective Assessments Start: 05/10/20 17:44 Freq: Status: Active Protocol: Document 05/10/20 17:51 CCC (Rec: 05/10/20 18:20 CCC [email or web address]) OT Strength Comments Strength Comments Right hand thenar eminence and decreased FMS M9 OT- IP Assessment and Plan Start: 05/10/20 17:44 Freq: Status: Active Protocol: Document 05/11/20 13:47 CGR (Rec: 05/11/20 13:55 CGR [email or web address]) OT Summary Assessment and Plan Potential Rehabilitation Potential Good Analytic Complexity at Evaluation Low Summary OT Impairments Balance,Functional Mobility, Grooming,Dressing,Toileting, Bathing,Toilet Transfers, Shower Transfers,Activity Tolerance Progress Towards Goals Progressing Toward Goals Assessment Summary Pt low complexity after L4-5 , l5-S1 TLIF with main barrier of pain, steps and needing assist for LB dressing needs. Pt participated in shower on this date and performed LB dressing using DME without VC. Pt is progressing with her abilities and will continue to benefit from OT services for home safety. Goals Grooming Goal Independent Dressing Goal Independent Toileting Goal Independent Bathing Goal Independent Toilet Transfer Goal Independent Shower Transfer Goal Independent Patient/Caregiver Education Goal Demonstrate Post-Op Precautions,Caregiver Independent Assisting Patient Days to Meet Goals 2 Frequency of Treatment Frequency Of Treatment Once a Day Treatment Plan OT Treatment Plan ADL Training,Functional Cognition Training,Functional Mobility,Patient/Family Education,Discharge Planning Discharge Recommendations OT Discharge Recommendations Home with Assistance Home Equipment Needs FWW, shower chair versus tub bench Transportation Needs at Discharge Private Vehicle
--- NOTE | 2020-05-11 11:47 | PT.IPTN ---
Current Diagnoses Spondylolisthesis, lumbosacral region (05/09/20) Spinal stenosis, lumbar region without neurogenic claudication (05/09/20) Surgery Performed Operation Date: 05/09/20 07:45 Actual Procedures p L4-5, L5-S1 TLIF - Ion Awad MD Physical Therapy Treatment Note M2 PT-IP Current Condition Start: 05/10/20 08:40 Freq: NEEDED Status: Active Protocol: Document 05/10/20 11:15 AW (Rec: 05/10/20 12:16 AW [id number]) Physical Therapy Current Condition Current Condition Evaluation Date 05/10/20 Treatment Diagnosis s/p L4-S1 TLIF Onset Date 05/09/20 Precautions Lumbar Precautions Log Roll,No Twisting,Limit Bending,Lifting Restriction of 10 lbs,Gait Belt above Incisional Area M3 PT-IP Subjective Start: 05/10/20 08:40 Freq: NEEDED Status: Active Protocol: Document 05/11/20 11:39 HH (Rec: 05/11/20 11:47 HH [id number]) Subjective Physical Therapy Visit Type Type Treatment Note Visit Start Time 10:53 Visit Stop Time 11:10 Total Visit Minutes 17 Number of CHILD CARE COOK Visits 0 Physical Therapy Visit Comments Patient Comments Pt is willing to participate with PT Therapy Pain Assessment Pain When Pain Assessed During Mobility Pain Present Pain Present Pain Reported Location back Intensity 3 Pain Management Techniques Timing of Activity with Medications M4 PT-IP Mobility and Gait Start: 05/10/20 08:40 Freq: NEEDED Status: Active Protocol: Document 05/11/20 11:39 HH (Rec: 05/11/20 11:47 HH [id number]) PT-Bed Mobility Assessment Rolling Type of Rolling Log Rolling,Roll to Right Level of Assist Standby Assistance Supine to Sit Supine to Sit Standby Assistance Sit to Supine Sit to Supine Standby Assistance Scooting Scooting to Edge of Bed Standby Assistance PT-Transfer Assessment Sit to and From Stand Sit to and from Stand Standby Assistance Equipment Transfer Assistive Device Gait Belt,Front Wheeled Walker Orthotic/Prosthetic Devices or Brace: No Transfers Transfer Destination Bed Transfer Technique pt ambulated with FWW Transfer Ability Level of Assist Standby Assistance Comments Mobility Comments Pt was lying on her R side upon PT arrival. Agreed to mobilize with PT. She completed SL to sit without bedrail. She then stood up with FWW and amb. She walked to AC entrance and completed stair climbing 12 steps x 2sets with L rail. Step over pattern to descend and step to pattern to ascend (led with L ) . Pt then returned to room and transferred herself back to bed with log roll. She overall completed 220 ft of amb SBA. Pt rested in bed comfortably. denies increase in pain. Call ligth placed within reach. Gait Assessment Gait Gait Assistance Required: Standby Assistance,Contact Guard Assist Distance (Feet) 220 Able to Maintain Weight Bearing Status Yes During Gait Assistive Devices Assistive Device Gait Belt,Front Wheeled Walker Orthotic/Prosthetic Devices or Brace: No Gait Deviations General Gait Pattern Antalgic,Decreased Feet Clearance,Flexed Trunk Factors Limiting Gait Function Factors Limiting Gait Function Decreased Activity Tolerance, Decreased Strength,Limited Range of Motion,Pain,Poor Balance Comments Gait Comments see mobility comments Stair Climbing Assessment Evaluation Level of Assist On Stairs Contact Guard Assistance Devices Stair Climbing Assistive Devices Left Railing Technique/Endurance Stair Climbing Direction Ascend and Descend Stair Climbing Technique Step to Step Number of Steps Climbed 12 Stair Climbing Set # Repetitions (reps) 2 Comments Stair Climbing Comments see mobility comments. PT-Balance Assessment Sitting Balance and Reactions Static Sitting Balance Ability Good Dynamic Sitting Balance Ability Good Standing Balance and Reactions Static Standing Balance Ability Good Dynamic Standing Balance Ability Good Device Used FWW M5 PT-IP Objective Assessments Start: 05/10/20 08:40 Freq: NEEDED Status: Active Protocol: Document 05/10/20 11:15 AW (Rec: 05/10/20 12:16 AW [id number]) Orientation Orientation/Cognition Level of Alertness Alert Orientation Name,Day of Week,Place, Situation Language Function Ability No Deficits Noted Safety Awareness Understands Safety Issues Memory Description No Deficits Noted Gross Range of Motion Lower Extremity ROM Assessment Within Functional Limits Strength Lower Extremity Strength Assessment Bilaterally Impaired Hip 4/5 Knee 4+/5 Ankle 4/5 Coordination Assessment Gross Coordination Gross Coordination WNL Sensation Assessment Sensation Gross Sensation WNL M6 PT-IP Treatment Start: 05/10/20 08:40 Freq: NEEDED Status: Active Protocol: Document 05/10/20 14:42 AW (Rec: 05/10/20 14:55 AW [id number]) Physical Therapy Treatment Education Education Provided Precautions,Safety Other Treatments Other Treatment Performed Pt independently recalled 3/3 precautions and moved with good attention to same. M7 PT-IP Assessment and Plan Start: 05/10/20 08:40 Freq: NEEDED Status: Active Protocol: Document 05/11/20 11:39 HH (Rec: 05/11/20 11:47 [id number]) PT Summary Assessment and Plan Potential Rehabilitation Potential Excellent Status of Condition at Evaluation Stable Summary Impairments Pain,ROM,Strength,Balance,Bed Mobility,Transfers,Gait, Activity Tolerance Progress Towards Goals Progressing Toward Goals Assessment Summary pt completed 12 steps with L rail x 2 sets safely. She also amb 220 ft with FWW. She is going to acquire FWW for home use. She is safe to dc to home with sister assistance as needed. Frequency of Treatment Frequency Of Treatment Discharge Recommendations To Nursing Amount of Assist Needed 1 Person Assist Discharge Recommendations PT Discharge Recommendations Home with Assistance Equipment Needed for Home Before pt is going to get FWW Discharge Transportation Needs at Discharge Private Vehicle
--- NOTE | 2020-05-11 14:46 | PC.NURSE ---
Discharge: Pt feels ready to d/c home. Seen by PT/OT and given their final instructions. Pt has coversite on back and given an extra dressing. Rx has been esent. Pt is taking diet w/out problems. Vds w/out diff. D/c packet reviewed. Questions answered. Pt d/c home via auto with sister.
== END 2020-05-11 14:15 | disposition home or self-care (01) ==
LOC: AC 05-11 12:51 → OR 05-11 15:04 → AC 05-11 15:06
PROVIDERS: Admitting Provider Orthopaedic Surgery Orthopaedic Surgery of the Spine; PCP Physician Assistant; Referring Provider Physician Assistant; Visit Provider Orthopaedic Surgery Orthopaedic Surgery of the Spine
PROC: (CPT 20939; principal; 2020-05-09 07:45)
DX: M48.061 Spinal stenosis, lumbar region without neurogenic claudication (principal); M43.17 Spondylolisthesis, lumbosacral region; F17.210 Nicotine dependence, cigarettes, uncomplicated; Z23 Encounter for immunization; Z01.818 Encounter for other preprocedural examination; Z01.812 Encounter for preprocedural laboratory examination; N39.0 Urinary tract infection, site not specified; Z11.59 Encounter for screening for other viral diseases
CPT/HCPCS: 20939; 63047; 63048; 22633; 22634; 22853 ×2; 22842; 36415; 72100; 76000; 80048; 81001; 85014; 85018; 85025; 87635; 90471; 90662; 93005; 97116; 97161; 97165; 97530; 97535; C1776; G0378; C9290; J0330; J0690; J1100; J1170; J2405; J2704; J3010; J3410